=== PATIENT | male | born 1985 | race African-American/Black ===

== ENCOUNTER 2019-07-07 13:15 | Emergency (ER) | payer OTHER ==
[2019-07-07] MEDS ORDERED: Sodium Chloride 0.9% 1,000 ML IV ONE ×2 (13:38→15:42)
[2019-07-07] MEDS ORDERED: Azithromycin 500 MG Vial IV ONE (13:41)
--- NOTE | 2019-07-07 13:48 | EDM.PDOC ---
ED HPI GENERAL MEDICAL PROBLEM - General Chief Complaint: General Stated Complaint: NOT FEELING WELL Time Seen by Provider: 07/07/19 15:15 Source of Information: Reports: Patient History Limitations: Reports: No Limitations - History of Present Illness Onset: Gradual (Started to feel weak with flu type symptoms at 3:30 PM yesterday.) Duration: Day(s): (one day) Location: Reports: Generalized Quality: Reports: Ache Severity: Moderate Improves with: Reports: None (Only able to hold down a small amount of fluids) Worsens with: Reports: None Context: Reports: Activity Associated Symptoms: Reports: Fever/Chills, Loss of Appetite, Malaise, Weakness (generalized weakness). Denies: Shortness of Breath, Syncope - Related Data Allergies Allergy/AdvReac Type Severity Reaction Status Date / Time No Known Allergies Allergy Verified 07/07/19 13:33 Home Meds: Home Meds Azithromycin 250 mg PO BID 10 Days #20 tablet 07/07/19 [Rx] Oseltamivir [Tamiflu] 75 mg PO BID 5 Days #10 cap 07/07/19 [Rx] ED ROS GENERAL - Review of Systems Review Of Systems: See Below Constitutional: Reports: Fever, Chills, Malaise, Weakness, Fatigue, Diaphoresis (All symptoms started yesterday around 3:30 PM.) HEENT: Reports: Rhinitis, Throat Pain. Denies: Ear Discharge, Ear Pain, Vertigo , Vision Change Respiratory: Reports: Cough. Denies: Shortness of Breath, Wheezing, Pleuritic Chest Pain, Sputum, Hemoptysis Cardiovascular: Reports: No Symptoms Endocrine: Reports: No Symptoms (He has a history of Diabetes Mellitus type 2.) GI/Abdominal: Reports: Anorexia, Decreased Appetite. Denies: Constipation, Distension, Flatus, Melena, Vomiting : Denies: Dysuria, Flank Pain, Frequency, Hematuria, Urgency Musculoskeletal: Reports: Other (generalized aches) Skin: Reports: No Symptoms. Denies: Bruising, Pruritis, Rash Neurological: Reports: No Symptoms Psychiatric: Reports: No Symptoms Hematologic/Lymphatic: Reports: No Symptoms Immunologic: Reports: No Symptoms ED EXAM, GENERAL - Physical Exam Exam: See Below Exam Limited By: No Limitations General Appearance: Alert, Lethargic, Mild Distress Eye Exam: Bilateral Eye: Normal Fundi, Normal Inspection, PERRL Ear Exam: Bilateral Ear: Auricle Normal, Canal Normal, TM normal Nose: Clear Rhinorrhea Throat/Mouth: Normal Lips, Normal Teeth, Normal Voice, No Airway Compromise, Dysphagia, Inflammation (in the posterior pharynx), Other (Tonsils are injected without exudate.) Head: Atraumatic, Normocephalic Neck: Normal Inspection, Supple, Non-Tender, Full Range of Motion Respiratory/Chest: No Respiratory Distress, Lungs Clear, Normal Breath Sounds, No Accessory Muscle Use, Chest Non-Tender Cardiovascular: Normal Peripheral Pulses, Regular Rate, Rhythm, No Edema, No Gallop, No JVD, No Murmur, No Rub Peripheral Pulses: 3+: Radial (L), Radial (R), Dorsalis Pedis (L), Dorsalis Pedis (R), 4+: Carotid (L), Carotid (R), Popliteal (L), Popliteal (R) GI/Abdominal: Normal Bowel Sounds, Soft, Non-Tender, No Organomegaly, No Distention, No Abnormal Bruit, No Mass Back Exam: Normal Inspection, Full Range of Motion, NT Extremities: Normal Inspection, Normal Range of Motion, Non-Tender, Normal Capillary Refill, No Pedal Edema Neurological: Alert, Oriented, CN II-XII Intact, Normal Cognition, Normal Gait, Normal Reflexes, No Motor/Sensory Deficits Psychiatric: Normal Affect, Normal Mood Skin Exam: Other (decrease skin tugor.) Lymphatic: No Adenopathy Course - Vital Signs Last Recorded V/S: Last Vital Signs Temp 98.2 F 07/07/19 13:27 Pulse 104 H 07/07/19 13:27 Resp 16 07/07/19 13:27 BP 106/65 07/07/19 13:27 Pulse Ox 98 07/07/19 13:27 - Orders/Labs/Meds Orders: Active Orders 24 hr Category Date Time Status Azithromycin [Zithromax] 500 mg Med 07/07/19 14:15 Active Sodium Chloride 0.9% [Normal Saline (AdvBag)] 250 ml IV ONETIME Medication Orders Azithromycin 500 mg/ Sodium (Chloride) 250 mls @ 250 mls/hr IV ONETIME PEDRO Last Admin: 07/07/19 14:19 Dose: 250 mls/hr Labs: Laboratory Tests 07/07/19 07/07/19 Range/Units 13:50 13:50 WBC 6.05 (4.0-11.0) K/uL RBC 4.38 L (4.50-5.90) M/uL Hgb 12.8 L (13.0-17.0) g/dL Hct 39.3 (38.0-50.0) % MCV 89.7 (80.0-98.0) fL MCH 29.2 (27.0-32.0) pg MCHC 32.6 (31.0-37.0) g/dL RDW Std Deviation 43.7 (28.0-62.0) fl RDW Coeff of Anjelica 13 (11.0-15.0) % Plt Count 213 (150-400) K/uL MPV 9.00 (7.40-12.00) fL Neut % (Auto) 57.5 (48.0-80.0) % Lymph % (Auto) 33.4 (16.0-40.0) % Dixon % (Auto) 8.6 (0.0-15.0) % Eos % (Auto) 0.2 (0.0-7.0) % Baso % (Auto) 0.3 (0.0-1.5) % Neut # (Auto) 3.5 (1.4-5.7) K/uL Lymph # (Auto) 2.0 (0.6-2.4) K/uL Dixon # (Auto) 0.5 (0.0-0.8) K/uL Eos # (Auto) 0.0 (0.0-0.7) K/uL Baso # (Auto) 0.0 (0.0-0.1) K/uL Nucleated RBC % 0.0 /100WBC Nucleated RBCs # 0 K/uL Sodium 136 (136-148) mmol/L Potassium 3.7 (3.5-5.1) mmol/L Chloride 100 (98-107) mmol/L Carbon Dioxide 25.7 (21.0-32.0) mmol/L BUN 19 H (7.0-18.0) mg/dL Creatinine 1.4 H (0.8-1.3) mg/dL Est Cr Clr Drug Dosing 75.81 mL/min Estimated GFR (MDRD) > 60.0 ml/min Glucose 108 H (74-106) mg/dL Calcium 9.0 (8.5-10.1) mg/dL Total Bilirubin 0.7 (0.2-1.0) mg/dL AST 48 H (15-37) IU/L ALT 34 (14-63) IU/L Alkaline Phosphatase 52 (46-116) U/L Total Protein 8.8 H (6.4-8.2) g/dL Albumin 3.7 (3.4-5.0) g/dL Globulin 5.1 H (2.6-4.0) g/dL Albumin/Globulin Ratio 0.7 L (0.9-1.6) Meds: Medications Generic Name Dose Route Start Last Admin Trade Name Freq PRN Reason Stop Dose Admin Azithromycin 500 mg/ Sodium 250 mls @ 250 mls/hr 07/07/19 14:15 07/07/19 14: 19 Chloride IV 250 mls/hr ONETIME PEDRO Administration Discontinued Medications Generic Name Dose Route Start Last Admin Trade Name Freq PRN Reason Stop Dose Admin Azithromycin 250 mg 07/07/19 13:41 07/07/19 14:24 Zithromax IV 07/07/19 13:42 Not Given ONETIME ONE Sodium Chloride 1,000 mls @ 1,000 mls/hr 07/07/19 13:38 07/07/19 14:18 Normal Saline IV 07/07/19 14:37 1,000 mls/hr .Bolus ONE Administration Departure - Departure Time of Disposition: 15:45 Disposition: Home, Self-Care 01 Condition: Fair (Much improved.) Clinical Impression: Influenza, Strep pharyngitis - Discharge Information *PRESCRIPTION DRUG MONITORING PROGRAM REVIEWED*: Yes *COPY OF PRESCRIPTION DRUG MONITORING REPORT IN PATIENT MARTINE: Yes Instructions: Influenza, Adult, [id number], Strep Throat, [id number] Referrals: PCP,Not In Area [Primary Care Provider] - Forms: ED Department Discharge Additional Instructions: Take all medications as directed. Drink plenty of fluids over the next two to three days. Rest for the next 48 hours. Return to the ED if your condition gets worse or should you have any other concerns. Sepsis Event Note - Evaluation Sepsis Screening Result: No Definite Risk - Focused Exam Vital Signs: Vital Signs Temp Pulse Resp BP Pulse Ox 07/07/19 13:27 98.2 F 104 H 16 106/65 98 Date Exam was Performed: 07/07/19 Time Exam was Performed: 15:33 - My Orders Last 24 Hours: My Active Orders 07/07/19 14:15 Azithromycin [Zithromax] 500 mg Sodium Chloride 0.9% [Normal Saline (AdvBag)] 250 ml IV ONETIME - Assessment/Plan Last 24 Hours: My Active Orders 07/07/19 14:15 Azithromycin [Zithromax] 500 mg Sodium Chloride 0.9% [Normal Saline (AdvBag)] 250 ml IV ONETIME
[2019-07-07] MEDS ORDERED: Azithromycin 500 MG in Sodium Chloride 0.9% 250 ML IV SCH (14:15)
[2019-07-07 14:45] LABS: BLOOD UREA NITROGEN,BUN 19 mg/dL (7.0-18.0); CARBON DIOXIDE,CO2 25.7 mmol/L (21.0-32.0); CHLORIDE,CL 100 mmol/L (98-107); GLUCOSE RANDOM 108 mg/dL (74-106); POTASSIUM,K 3.7 mmol/L (3.5-5.1); SODIUM,NA 136 mmol/L (136-148)
[2019-07-07] MEDS ORDERED: Oseltamivir 75 MG Cap PO ONE (15:38)
== END 2019-07-07 16:11 | disposition home or self-care (01) ==
LOC: MW.ED 13:15
DX: J11.1 Influenza due to unidentified influenza virus with other respiratory manifestations (principal)
CPT/HCPCS: 36415; 80053; 85025; 87804; 87880; 96365; 99284; A9270; J0456; J7030; J7050